=== PATIENT | male | born 1940 | race Asian ===

== ENCOUNTER → 2017-05-09 | Outpatient (CLI) | payer MEDICARE, OTHER | END | disposition home or self-care (01) | LOC: RADPV 10:47 | PROVIDERS: ATTEND Internal Medicine | DX: I70.0 Atherosclerosis of aorta (principal); M43.8X4 Other specified deforming dorsopathies, thoracic region; M81.0 Age-related osteoporosis without current pathological fracture | CPT/HCPCS: 72100 ==

== ENCOUNTER → 2017-05-25 | Outpatient (CLI) | payer MEDICARE, OTHER | END | disposition home or self-care (01) | LOC: RADPV 12:16 | PROVIDERS: ATTEND Internal Medicine | DX: M85.80 Other specified disorders of bone density and structure, unspecified site (principal); M81.0 Age-related osteoporosis without current pathological fracture; I10 Essential (primary) hypertension; F17.210 Nicotine dependence, cigarettes, uncomplicated; I70.0 Atherosclerosis of aorta | CPT/HCPCS: 71046; 77080 ==

== ENCOUNTER → 2019-01-16 | Outpatient (CLI) | payer MEDICARE, OTHER | END | disposition home or self-care (01) | LOC: RADMN 12:33 | PROVIDERS: ATTEND Physical Medicine & Rehabilitation Spinal Cord Injury Medicine | DX: S00.03XA Contusion of scalp, initial encounter (principal); M48.061 Spinal stenosis, lumbar region without neurogenic claudication; M16.0 Bilateral primary osteoarthritis of hip; M48.02 Spinal stenosis, cervical region; I67.82 Cerebral ischemia; M48.56XA Collapsed vertebra, not elsewhere classified, lumbar region, initial encounter for fracture; I67.2 Cerebral atherosclerosis; M50.30 Other cervical disc degeneration, unspecified cervical region; X58.XXXA Exposure to other specified factors, initial encounter; Y93.89 Activity, other specified; Y92.89 Other specified places as the place of occurrence of the external cause; Y99.8 Other external cause status | CPT/HCPCS: 70450; 72125; 72131 ==